=== PATIENT | female | born 1950 | race Caucasian/White ===

== ENCOUNTER 2016-12-10 11:45 | Emergency (ER) | payer OTHER ==
[~2016-12-10] VITALS: Ht 157.5 cm; Wt 76.0 kg
[2016-12-10 11:47] VITALS: Ht 157.5 cm; Wt 76.0 kg
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
[2016-12-10] MEDS ORDERED: HYDROCODONE/APAP (5/325) TAB PO ONE (12:30)
--- NOTE | 2016-12-10 13:09 | RADRPT ---
PROCEDURE: XR Knee. CLINICAL INDICATION: Right knee pain. TECHNIQUE: AP, lateral and oblique views of the right knee were obtained. The images reviewed on a PACS workstation. COMPARISON: None. FINDINGS: The bones appear intact, with no evidence of fracture, erosion, demineralization, or dislocation. Th e alignment of the femorotibial and patellofemoral joints appears normal. No joint space narrowing i s seen. No evidence of effusion. No soft tissue swelling is present. IMPRESSION: Unremarkable examination of the right knee. RPTAT: HPNM Physician Ana Date Time Electronically viewed and signed by Physician Ana on 12/10/2016 13:09 /
[2016-12-10] MEDS ORDERED: IBUP400T22 PO (13:13)
== END 2016-12-10 13:29 | disposition home or self-care (01) ==
LOC: FTE 11:45
DX: M25.561 Pain in right knee (principal); I10 Essential (primary) hypertension
CPT/HCPCS: 73562; Z7502; Z7610

== ENCOUNTER 2018-01-05 17:53 | Emergency (ER) | END 2018-01-05 20:26 | disposition home or self-care (01) ==

== ENCOUNTER 2018-04-06 20:19 | Emergency (ER) | END 2018-04-07 00:45 | disposition home or self-care (01) ==

== ENCOUNTER 2018-06-28 12:55 | Emergency (ER) | payer OTHER ==
[~2018-06-28] VITALS: Wt 67.4 kg
[~2018-06-28 12:55] MED LIST: ACET500C5 PO; ALBU18HF INHALATION; ATOR20TA38 PO; AZIT250T13 PO; BENZ-6 PO; CEPH-443 PO; CHOL100062 PO; GLIM1TAB2 PO; GUAI-637 PO; LORA10TA3 PO; METF100010 PO; ONDA4TAB8 PO; PRED20TA PO; PROP10TA6 PO
[2018-06-28 12:57] VITALS: BP 147/81; PULSE 71; RESP 18
[2018-06-28] MEDS ORDERED: ACET-2047 PO (14:57)
[2018-06-28] MEDS ORDERED: FLUT9.9S NASAL (14:57)
[2018-06-28] MEDS ORDERED: CETI10CA PO (14:57)
[2018-06-28] MEDS ORDERED: BENZ-6 PO (14:57)
--- NOTE | 2018-06-28 15:47 | ERD ---
ER Documentation Chief Complaint Chief Complaint SORE THROAT HPI 68-year-old female presenting to the ED complaining of sore throat, cough, congestion for the past week. She denies fevers. Patient denies chest pain, shortness of breath. States that she is tried [id number] medication earlier without any relief ROS All systems reviewed and are negative except as per history of present illness. Medications Home Meds Active Scripts Fluticasone Propionate (Flonase Allergy Relief) 9.9 Ml [place].susp, 1 SPRAY NASAL DAILY, #1 BOTTLE TO EACH NOSTRIL Prov:VAIBHAV DAN-C 06/28/18 Cetirizine Hcl* (Zyrtec*) 10 Mg Capsule, 10 MG PO DAILY, #30 TAB.CHEW Prov:VAIBHAV DANC 06/28/18 Benzonatate* (Tessalon Perle*) 100 Mg Capsule, 100 MG PO Q8H PRN for COUGH, #30 CAP Prov:VAIBHAV DANC 06/28/18 Acetaminophen* (Acetaminophen*) 650 Mg Tablet, 650 MG PO Q6 PRN for PAIN AND OR ELEVATED TEMP, #30 TAB Prov:VAIBHAV DAN PA-C 06/28/18 Guaifenesin* (Robitussin*) 100 Mg/5 Ml Syrup, 100 MG PO Q4H PRN for COUGH, #120 ML Prov:ANDREI CANTRELL 04/06/18 Ondansetron Hcl* (Zofran*) 4 Mg Tablet, 4 MG PO Q8H PRN for NAUSEA AND/OR VOMITING, #30 TAB Prov:PASANDREI ASHRAF 04/06/18 Acetaminophen* (Tylophen*) 500 Mg Capsule, 1 CAP PO Q6H PRN for PAIN AND OR ELEVATED TEMP, #20 CAP Prov:PASILAANDREI CORNELL 04/06/18 Cephalexin* (Keflex*) 500 Mg Capsule, 500 MG PO TID for 7 Days, CAP Prov:PASILAANDREI CORNELL F 04/06/18 Azithromycin* (Azithromycin*) 250 Mg Tablet, 250 MG PO DAILY, #4 TAB Prov:CHARITY FLYNN MD 01/19/18 Benzonatate* (Tessalon Perle*) 100 Mg Capsule, 100 MG PO Q8H PRN for COUGH, #12 CAP Prov:CHARITY FLYNN MD 01/19/18 Albuterol Sulfate* (Ventolin HFA*) 18 Gm Hfa.aer.ad, 2 PUFF INHALATION Q4H for wheezing, #1 INHALER Prov:CHARITY FLYNN MD 01/19/18 Prednisone* (Prednisone*) 20 Mg Tab, 40 MG PO DAILY for 4 Days, TAB Prov:CHARITY FLYNN MD 01/19/18 Reported Medications Atorvastatin Calcium* (Atorvastatin Calcium*) 20 Mg Tablet, 20 MG PO QHS, #30 TAB 01/19/18 Metformin Hcl* (Metformin Hcl*) 1,000 Mg Tablet, 1000 MG PO WITH BREAKFAST DINNE, #60 TAB 01/19/18 Loratadine* (Loratadine*) 10 Mg Tablet, 10 MG PO DAILY, #30 TAB 01/19/18 Cholecalciferol* (Vitamin D3*) 1,000 Unit Tablet, 1000 UNIT PO DAILY, TAB 01/19/18 Glimepiride* (Glimepiride*) 1 Mg Tablet, 1 MG PO WITH BREAKFAST, TAB 01/19/18 Propranolol Hcl* (Propranolol Hcl*) 10 Mg Tablet, 10 MG PO BID, TAB 01/19/18 Allergies Allergies: Coded Allergies: No Known Allergy (Unverified , 01/19/18) PMhx/Soc History of Surgery: Yes (C SECTION ) Anesthesia Reaction: No Hx Neurological Disorder: No Hx Respiratory Disorders: No Hx Cardiac Disorders: Yes (HTN, HLD) Hx Psychiatric Problems: No Hx Miscellaneous Medical Probl: Yes (DM) Hx Alcohol Use: No Hx Substance Use: No Hx Tobacco Use: No Physical Exam Vitals Vital Signs Date Temp Pulse Resp B/P (MAP) Pulse Ox O2 O2 Flow FiO2 Time Delivery Rate 06/28/18 98.1 71 18 147/81 99 12:57 (103) Physical Exam Const: No acute distress Head: Atraumatic Eyes: Normal Conjunctiva ENT: Normal External Ears, Nose and Mouth. Neck: Full range of motion. No meningismus. Resp: Clear to auscultation bilaterally Cardio: Regular rate and rhythm, no murmurs Abd: Soft, non tender, non distended. Normal bowel sounds Skin: No petechiae or rashes Back: No midline or flank tenderness Ext: No cyanosis, or edema Neur: Awake and alert Psych: Normal Mood and Affect Procedures/MDM 38-year-old female presents to the ER with upper respiratory infection, which is most likely viral. My clinical suspicion is low suspicion for pneumonia, strep pharyngitis, or pulmonary emergencies due to physical examination. Patient's lungs were clear on examination. stable for discharge. Prescription for Tessalon Perles, Tylenol, Flonase and Zyrtec was given to patient, discussed to return to the ED if not improving as expected or follow-up with a primary care physician. Patient understood and agreed with this plan. CXR Calcified aorta consistent with atherosclerotic disease. Mild degenerative changes of the thoracic spine. No acute disease. Departure Diagnosis: Primary Impression: URI (upper respiratory infection) Condition: Stable Patient Instructions: Uri, Viral, No Abx (Adult) Additional Instructions: Visite a ball wilder conte para un EXAMEN.Regrese a estas instalaciones si no se mejora dmitry esperbamos o dmitry le dijimos. [place] toda la medicina byron y dmitry se le indic. Regrese a estas instalaciones si no se mejora dmitry esperbamos o dmitry le dijimos. VAIBHAV DAN PA-C Jun 28, 2018 15:47
== END 2018-06-28 15:12 | disposition home or self-care (01) ==
LOC: FTE 12:55
DX: J06.9 Acute upper respiratory infection, unspecified (principal); I10 Essential (primary) hypertension; E11.9 Type 2 diabetes mellitus without complications; Z79.84 Long term (current) use of oral hypoglycemic drugs
CPT/HCPCS: 71046; Z7502